=== PATIENT | male | born 1965 | race Caucasian/White ===

== ENCOUNTER 2016-12-24 20:03 | Emergency (ER) | payer OTHER ==
[~2016-12-24] VITALS: Ht 175.3 cm; Wt 74.5 kg
[2016-12-24] MEDS ORDERED: ATAZ150 PO (20:30)
[2016-12-24] MEDS ORDERED: TRUVT PO (20:30)
[2016-12-24] MEDS ORDERED: ROSU10 PO (20:30)
[2016-12-24] MEDS ORDERED: RITO100T PO (20:30)
[2016-12-24] MEDS ORDERED: INDO50 PO (20:30)
[2016-12-24] MEDS ORDERED: KETOROLAC TROMETHAMINE 60 MG/2 ML VIAL IM ONE (22:30)
[2016-12-24] MEDS ORDERED: DIAZEPAM 5 MG TABLET PO ONE (22:30)
[2016-12-24 23:14] VITALS: BP 125/77
== END 2016-12-24 23:19 | disposition home or self-care (01) ==
LOC: EMS 20:04
DX: M54.5 Low back pain (principal); M25.551 Pain in right hip; M25.552 Pain in left hip; G89.29 Other chronic pain; F17.210 Nicotine dependence, cigarettes, uncomplicated; Z88.6 Allergy status to analgesic agent; Z88.5 Allergy status to narcotic agent; Z88.8 Allergy status to other drugs, medicaments and biological substances
CPT/HCPCS: 96372; 99283; J1885

== ENCOUNTER 2017-02-02 14:29 | Emergency (ER) | payer OTHER ==
[~2017-02-02] VITALS: Ht 175.3 cm; Wt 72.7 kg
[~2017-02-02 14:29] MED LIST: ATAZ150 PO; INDO50 PO; RITO100T PO; ROSU10 PO; TRUVT PO
[2017-02-02] MEDS ORDERED: HYDROCODONE/ACETAMINOPHEN 5-325 MG TABLET PO ONE (15:45)
[2017-02-02] MEDS ORDERED: KETOROLAC TROMETHAMINE 60 MG/2 ML VIAL IM ONE (15:45)
[2017-02-02 18:40] VITALS: BP 120/78
== END 2017-02-02 18:42 | disposition home or self-care (01) ==
LOC: EMS 14:31
DX: S73.101A Unspecified sprain of right hip, initial encounter (principal); F17.210 Nicotine dependence, cigarettes, uncomplicated; Z88.6 Allergy status to analgesic agent; Z88.5 Allergy status to narcotic agent; Z88.8 Allergy status to other drugs, medicaments and biological substances; X58.XXXA Exposure to other specified factors, initial encounter; Y93.89 Activity, other specified; Y92.89 Other specified places as the place of occurrence of the external cause; Y99.8 Other external cause status
CPT/HCPCS: 73502; 96372; 99284; J1885

== ENCOUNTER 2021-05-22 19:29 | Emergency (ER) | payer MEDICARE, MEDICAID ==
[~2021-05-22] VITALS: Ht 175.3 cm; Wt 101.4 kg
[~2021-05-22 19:29] MED LIST changes: -ATAZ150 PO; -INDO50 PO; +INDO50CA97 PO; -ROSU10 PO; +ROSU10TA72 PO; +[UNRECOGNIZED DRUG - CODE] PO
[2021-05-22] MEDS ORDERED: DULO30CA89 PO (19:51)
[2021-05-22] MEDS ORDERED: DOLU1TAB PO (19:51)
[2021-05-22] MEDS ORDERED: DARU1TAB PO (19:51)
[2021-05-22] MEDS ORDERED: ROSU10TA72 PO (19:51)
[2021-05-22] MEDS ORDERED: MIRT30 PO (19:51)
[2021-05-22] MEDS ORDERED: PREG150C PO (19:51)
[2021-05-22] MEDS ORDERED: ASPI81TA87 PO (19:51)
[2021-05-22] MEDS ORDERED: FURO-152 PO (19:51)
[2021-05-22 20:12] LABS: BASOPHILS % (AUTO) 0.2 % (0.0-2.0); EOSINOPHILS % (AUTO) 0.6 % (1.0-6.0); HEMATOCRIT 41.2 % (41-53); HEMOGLOBIN 14.4 g/dL (13.5-17.5); LYMPHOCYTES % (AUTO) 26.6 % (22.0-44.0); MEAN CORPUSCULAR HGB CONC 34.9 G/dL (31.0-37.0); MEAN CORPUSCULAR VOLUME 89 fL (80-100); MONOCYTES # (AUTO) 0.7 K/uL (0.1-1.0); MONOCYTES % (AUTO) 6.7 % (2.0-9.0); NEUTROPHILS # (AUTO) 7.3 K/uL (1.8-7.7); NEUTROPHILS % (AUTO) 65.9 % (40.0-70.0); PLATELET COUNT (AUTO) 210 K/uL (150-450); RED BLOOD CELL COUNT(AUTO) 4.65 MIL/uL (4.50-5.90); RED CELL DISTRIBUTION WIDTH 14.1 % (11.5-14.5)
[2021-05-22 20:26] LABS: ANION GAP 13 mmol/L (8-16); CALCIUM, TOTAL 9.4 mg/dL (8.8-10.5); CARBON DIOXIDE 23 mmol/L (22-29); CHLORIDE 105 mmol/L (98-107); CREATININE 1.79 mg/dL (0.60-1.30); GLOMERULAR FILTR. RATE CALC 40 mL/min (>60); GLUCOSE,RANDOM 105 mg/dL (70-110); POTASSIUM 3.7 mmol/L (3.5-5.1); SODIUM SERUM 141 mmol/L (136-145); UREA NITROGEN, BLOOD 20 mg/dL (7-18)
[2021-05-22 20:31] LABS: ALANINE AMINOTRANSFERASE 55 U/L (12-78); ALBUMIN 4.3 g/dL (3.4-5.0); ALKALINE PHOSPHATASE 89 U/L (46-116); ASPARTATE AMINOTRANSFERASE 26 U/L (15-37); BILIRUBIN,TOTAL 0.4 mg/dL (0.1-1.0); INR 1.1 (0.9-1.1); PROTHROMBIN TIME 11.2 SEC (9.4-11.6); TOTAL PROTEIN, SERUM 7.7 g/dL (6.4-8.2)
[2021-05-22 20:34] LABS: B-TYPE NATRIURETIC PEPTIDE < 5 pg/mL (0-100)
[2021-05-22] MEDS ORDERED: SODIUM CHLORIDE 0.9% 1,000 ML IV ONE (21:45)
[2021-05-22 23:30] VITALS: BP 108/72
== END 2021-05-22 23:33 | disposition home or self-care (01) ==
LOC: EMS 19:34
DX: R55 Syncope and collapse (principal); R42 Dizziness and giddiness; R79.89 Other specified abnormal findings of blood chemistry; I50.9 Heart failure, unspecified; F32.9 Major depressive disorder, single episode, unspecified; F17.210 Nicotine dependence, cigarettes, uncomplicated; Z88.8 Allergy status to other drugs, medicaments and biological substances; Z79.899 Other long term (current) drug therapy
CPT/HCPCS: 71045; 80053; 82962; 83880; 84484; 85025; 85610; 85730; 93005; 96360; 99285; 36415-L1; 36415-TC

== ENCOUNTER 2022-03-12 17:59 | Emergency (ER) | payer MEDICARE, MEDICAID ==
[~2022-03-12] VITALS: Ht 175.3 cm; Wt 90.0 kg
[~2022-03-12 17:59] MED LIST changes: +ASPI81TA87 PO; +DARU1TAB PO; +DOLU1TAB PO; +DULO-114 PO; +EMTR1TAB53 PO; +FURO-152 PO; +MIRT-149 PO; +PREG150C PO; -TRUVT PO
[2022-03-12 21:19] VITALS: BP 131/78
== END 2022-03-12 22:13 | disposition left against medical advice (07) ==
LOC: EMS 18:17
DX: R42 Dizziness and giddiness (principal); Z53.21 Procedure and treatment not carried out due to patient leaving prior to being seen by health care provider